=== PATIENT | male | born 1945 | race Asian ===

== ENCOUNTER 2018-07-10 19:03 | Emergency (ER) | payer OTHER, MEDICAID ==
[~2018-07-10] VITALS: Ht 170.2 cm; Wt 76.7 kg
[2018-07-10 19:44] VITALS: Ht 170.2 cm; Wt 76.7 kg
[2018-07-10 21:09] VITALS: BP 100/71
== END 2018-07-10 21:09 | disposition home or self-care (01) ==
LOC: ED 19:03
DX: S82.64XA Nondisplaced fracture of lateral malleolus of right fibula, initial encounter for closed fracture (principal); E11.9 Type 2 diabetes mellitus without complications; X50.1XXA Overexertion from prolonged static or awkward postures, initial encounter; Y93.89 Activity, other specified; Y92.89 Other specified places as the place of occurrence of the external cause; Y99.8 Other external cause status